=== PATIENT | male | born 1955 ===

== ENCOUNTER 2018-04-23 05:51 | Day surgery (SDC) | payer OTHER ==
[2018-04-23] MEDS ORDERED: ECOTRIN PO ONE (06:47)
[2018-04-23] MEDS ORDERED: NACL 0.9% 500 ML 500 ML IV SCH (07:00)
[2018-04-23 07:33] LABS: Basophils # (Auto) 0.1 K/mm3 (0.0-0.1); Basophils % (Auto) 0.7 % (0.0-1.8); Eosinophils # (Auto) 0.2 K/mm3 (0.0-0.4); Eosinophils % (Auto) 1.9 % (0.0-4.3); Hematocrit 50.4 % (35.5-45.6); Hemoglobin 17.4 gm/dl (11.8-15.2); Lymphocytes # (Auto) 2.4 K/mm3 (1.2-5.4); Lymphocytes % (Auto) 20.8 % (13.4-35.0); Mean Corpuscular HGB Conc 35 % (32-34); Mean Corpuscular Hemoglobin 32 pg (28-32); Mean Corpuscular Volume 92 fl (84-94); Monocytes # (Auto) 0.7 K/mm3 (0.0-0.8); Monocytes % (Auto) 5.9 % (0.0-7.3); Platelet Count 208 K/mm3 (140-440); Red Blood Count 5.51 M/mm3 (3.65-5.03); Red Cell Distribution Width 13.3 % (13.2-15.2)
[2018-04-23 07:42] LABS: BUN/Creatinine Ratio 12; Blood Urea Nitrogen 11 mg/dL (9-20); Calcium 9.1 mg/dL (8.4-10.2); Hemolysis Index 9
[2018-04-23 07:43] LABS: INR 0.87 (0.87-1.13)
[2018-04-23 07:44] LABS: Partial Thromboplastin Time 31.2 Sec. (24.2-36.6)
[2018-04-23] MEDS ORDERED: CALAN ONE (08:54)
[2018-04-23] MEDS ORDERED: HEPARIN 10,000 UNITS/10 ML ONE (08:54)
[2018-04-23] MEDS ORDERED: HEPARIN/NS 5000 UNIT/500ML(CATH LAB) 1,000 ML IR ONE (08:54)
[2018-04-23] MEDS ORDERED: XYLOCAINE 2% INFILTRATI ONE (08:54)
[2018-04-23] MEDS ORDERED: NITROGLYCERIN SYRINGE 3 ML ONE (08:55)
[2018-04-23] MEDS ORDERED: VERSED ONE (08:55)
[2018-04-23] MEDS: SUBLIMAZE ONE ×2 (09:50→09:54)
--- NOTE | 2018-04-23 10:39 | Discharge Summary ---
Short Stay Discharge Plan Activity: advance as tolerated Weight Bearing Status: Full Weight Bearing Diet: low fat, low cholesterol, low salt Wound: keep clean and dry Special Instructions: no heavy lifting (3 days) Follow up with: JESSICA MALDONADO NP [Primary Care Provider] - 7 Days GUADALUPE MOSLEY MD [Staff Physician] - 7 Days
[2018-04-23] MEDS ORDERED: NACL 0.9% 1000 ML 1,000 ML IV SCH (11:00)
--- NOTE | 2018-04-23 11:03 | Cardiac Catherization Report ---
REASON FOR PROCEDURE: Chest pain and abnormal thallium stress test. PROCEDURE: The patient was prepped and draped in a sterile fashion after informed consent. The right radial cath site was prepped and draped after a negative Carlos's test. The right radial artery was entered using Seldinger technique followed by placement of a 6-Danish hydrophilic sheath. Routine radial cocktail was administered via the sheath. Selective left and right coronary angiography was performed using a #3.5 left Fermin catheter and then #4 right Fermin catheter. A pigtail catheter was then used for left ventricle angiography. The catheters were removed, sheath removed, and hemostasis achieved using a TR band. The patient was returned to the postprocedure unit in stable condition. There were no complications. FINDINGS: HEMODYNAMICS: Left ventricular end diastolic pressure was 17 following coronary angiography. Ascending aortic pressure was 100/55. There was no significant pressure gradient on pullback across the aortic valve. CORONARY ANGIOGRAPHY: There was mild luminal narrowing of the mid left main coronary artery. The proximal left anterior descending artery contained mild irregularities. This led to a large first diagonal branch, which perfused a large portion of the anterolateral wall. Immediately following the diagonal branch, the LAD was occluded. This was a chronic total occlusion of this vessel. There was faint reconstitution of a very small caliber LAD by left to left collaterals. Despite its small caliber, the LAD extended to the apex and appeared to run intramyocardial through its course. A medium sized ramus intermedius artery contained a 30-40% proximal stenosis followed by mild irregularities in its mid and distal segments. The AV groove circumflex artery contained mild diffuse atherosclerosis, leading to a large terminal obtuse marginal. There was a 50-60% stenosis of the distal circumflex leading to the terminal obtuse marginal. The right coronary artery was dominant. This vessel contained [id number] diffuse atherosclerosis of its proximal to mid segments with sequential, multiple 40-50% lesions. There was normal left ventricular systolic function with ejection fraction 60%. There was well preserved anterior wall motion in the MOSLEY projection. CONCLUSION: 1. Multivessel coronary artery disease as above with chronic total occlusion of a small caliber left anterior descending artery. The anterolateral wall appears to derive substantial amount of his perfusion from the large diagonal branch. 2. Normal left ventricular systolic function, ejection fraction 60%. RECOMMENDATION: Aggressive risk factor modification and medical therapy. [facility]# [id number] OLIVER/ALDA
[2018-04-23] MEDS ORDERED: TYLENOL ONE (12:36)
[2018-04-23] MEDS ORDERED: TYLENOL PO ONE (12:43)
[2018-04-23 14:47] VITALS: BP 124/66
== END 2018-04-23 15:00 | disposition home or self-care (01) ==
LOC: CATHLABREC 05:51
PROVIDERS: ATTEND Internal Medicine Cardiovascular Disease
DX: I25.10 Atherosclerotic heart disease of native coronary artery without angina pectoris (principal); I10 Essential (primary) hypertension; R94.31 Abnormal electrocardiogram [ECG] [EKG]; I48.0 Paroxysmal atrial fibrillation; F17.210 Nicotine dependence, cigarettes, uncomplicated; Z98.890 Other specified postprocedural states; Z79.899 Other long term (current) drug therapy
CPT/HCPCS: 36415; 80048; 85025; 85610; 85730; 93005; 93010; 93458; C1894; J1644; J2250; J3010; J7030; J7040; Q9967